=== PATIENT | male | born 1990 | race Caucasian/White ===

== ENCOUNTER 2022-06-21 20:05 | Emergency (ER) | payer OTHER ==
[~2022-06-21] VITALS: Ht 170.2 cm; Wt 101.6 kg
--- NOTE | 2022-06-21 20:20 | NUR ---
BIB FRIEND FOR C/O LACERATION TO TONGUE DURING TUVALUAN JUI JITSU. PT AWAKE AND ALERT X4 BREATHING EVEN AND UNLABORED. ALL V/S WNL. WAS AT BEDSIDE FOR EVAL.
[2022-06-21] MEDS ORDERED: LIDOCAINE VISCOUS 2% UD 15 ML UDC ONE (20:26)
[2022-06-21] MEDS ORDERED: LIDOCAINE VISCOUS 2% UD 15 ML UDC MM ONE (20:30)
[2022-06-21] MEDS ORDERED: LIDOCAINE 0.5%-EPI 1:200,000 50 ML VIAL ONE (20:31)
--- NOTE | 2022-06-21 20:34 | NUR ---
DR BRUNSON AT BEDSIDE FOR LAC REPAIR
--- NOTE | 2022-06-21 21:07 | NUR ---
Patient discharged to home in stable condition. Written and verbal after care instructions given. Patient verbalizes understanding of instruction.
[2022-06-21 21:08] VITALS: BP 136/74
== END 2022-06-21 21:08 | disposition home or self-care (01) ==
LOC: ER 20:17
DX: S01.512A Laceration without foreign body of oral cavity, initial encounter (principal); Z88.6 Allergy status to analgesic agent; Z88.5 Allergy status to narcotic agent; X58.XXXA Exposure to other specified factors, initial encounter; Y93.89 Activity, other specified; Y92.89 Other specified places as the place of occurrence of the external cause; Y99.8 Other external cause status
CPT/HCPCS: 13132; 99285; J3490; A6403